=== PATIENT | male | born 1975 | race Caucasian/White ===

== ENCOUNTER 2017-03-21 13:22 | Emergency (ER) | payer MEDICAID ==
[~2017-03-21] VITALS: Ht 188 cm; Wt 117.9 kg
[2017-03-21 14:09] VITALS: BP 173/109
== END 2017-03-21 14:50 | disposition left against medical advice (07) ==
LOC: ER 13:22
DX: R21 Rash and other nonspecific skin eruption (principal); Z53.21 Procedure and treatment not carried out due to patient leaving prior to being seen by health care provider